=== PATIENT | female | born 1995 | race Caucasian/White ===

== ENCOUNTER 2019-08-01 17:10 | Emergency (ER) | payer MEDICAID ==
[2019-08-01] MEDS ORDERED: IPRATROPIUM/ALBUTEROL 3 ML NEB INH STA (17:19)
[2019-08-01] MEDS ORDERED: predniSONE 20 MG TABLET PO STA (17:37)
--- NOTE | 2019-08-01 17:39 | ED Physician Documentation ---
History of Present Illness - Stated complaint Stated Complaint: SOA - Chief complaint Chief Complaint: Resp - History obtained from History obtained from: Patient - History of Present Illness Timing: How many days ago (3) Pain level max: 0 Pain level now: 0 - Additonal information Additional information: 24-year-old female presents to the emergency department stating that she has had difficulty breathing for the past 3 days. She is out of her steroid inhaler. [place] No fevers. No cough. History of asthma. Has been using her inhaler without relief. Denies any possibility of . Review of Systems Ten Systems: 10 systems reviewed and negative Constitutional: denies: Fever, Chills Ears: denies: Ear pain Nose: denies: Rhinorrhea / runny nose, Congestion Throat: denies: Sore throat Cardiac: denies: Chest pain / pressure, Palpitations Respiratory: reports: Dyspnea, Wheezing. 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 HEENT: None Psych: None Musculoskeletal: None Derm: None - Past Surgical History Past Surgical History: Yes Ortho: Other - Present Medications Home Medications: Ambulatory Orders Medication Instructions Recorded Confirmed Albuterol Sulfate [Albuterol 1 puffs INH Q8HR 04/19/14 11/16/14 Sulfate Hfa] predniSONE [Deltasone] 40 mg PO DAILY 5 Days tablet 04/19/14 11/16/14 Albuterol 2.5 mg INH Q4H PRN #30 neb 08/01/19 Albuterol Sulfate [Proair Hfa 1 - 2 puffs INH Q4H PRN #1 inhaler 08/01/19 Inhaler] Fluticasone/Salmeterol [Advair 1 each IH BID #1 blst.w.dev 08/01/19 250-50 Diskus] predniSONE [Deltasone] 10 mg PO [id number] #42 tab 08/01/19 - Allergies Allergies/Adverse Reactions: Allergies Allergy/AdvReac Type Severity Reaction Status Date / Time No Known Drug Allergies Allergy Verified 08/01/19 17:14 - Social History Does the pt smoke?: No Smoking Status: Never smoker Does the pt drink ETOH?: No Does the pt have substance abuse?: No - Immunizations Immunizations are current?: Yes PD ED PE NORMAL - Vitals Vital signs reviewed: Yes - General General: Alert and oriented X 3, No acute distress, Well developed/nourished - HEENT HEENT: PERRL, Ears normal, Moist mucous membranes, Pharynx benign - Neck Neck: Supple, no meningeal sign - Cardiac Cardiac: RRR - Respiratory Respiratory: Other (Mild respiratory distress with diffuse wheezing bilaterally) - Abdomen Abdomen: Soft, Non tender, Non distended - Back Back: No CVA TTP, No spinal TTP - Derm Derm: Warm and dry - Extremities Extremities: No edema, No calf tenderness / cord - Neuro Neuro: Alert and oriented X 3 - Psych Psych: Normal mood, Normal affect Results - Vitals Vitals: Vital Signs - 24 hr 08/01/19 08/01/19 08/01/19 17:14 17:30 18:20 Temperature 36.7 C Heart Rate 100 107 H 105 H Respiratory 22 20 22 Rate Blood Pressure 146/86 H O2 Saturation 94 08/01/19 19:00 Temperature Heart Rate 89 Respiratory 17 Rate Blood Pressure 146/91 H O2 Saturation 99 Oxygen O2 Source Room air - Labs Labs: Laboratory Tests 08/01/19 08/01/19 17:30 17:30 WBC 13.6 H RBC 4.96 Hgb 15.1 Hct 45.0 MCV 90.7 MCH 30.4 MCHC 33.6 RDW 13.2 Plt Count 310 MPV 10.0 Neut # (Auto) 8.8 H Lymph # (Auto) 2.7 [place] # (Auto) 0.7 Eos # (Auto) 1.3 H Baso # (Auto) 0.1 Absolute Nucleated RBC 0.00 Band Neuts % (Manual) Not Reportable Abnorm Lymph % (Manual) Not Reportable Nucleated RBC % 0.0 Neutrophils # (Manual) Not Reportable Lymphocytes # (Manual) Not Reportable Monocytes # (Manual) Not Reportable Eosinophils # (Manual) Not Reportable Basophils # (Manual) Not Reportable Differential Comment MANUAL=AUTO DIFF Platelet Estimate NORMAL (130-450,000) Platelet Morphology NORMAL APPEARANCE RBC Morph Micro Appear NORMAL APPEARANCE Sodium 139 Potassium 3.8 Chloride 104 Carbon Dioxide 23 Anion Gap 12.0 BUN 10 Creatinine 0.8 Estimated GFR (MDRD) 89 Glucose 91 Calcium 9.7 PD MEDICAL DECISION MAKING - ED course Complexity details: reviewed results, re-evaluated patient, considered differential, d/w patient ED course: Patient with an asthma exacerbation. She is well-appearing, nontoxic. Afebrile. No hypoxia. Patient feels much better after steroids and nebulizer treatments. She would like to go home at this time. We will refill her medications for her and place her on a steroid taper. Patient counseled regarding signs and symptoms for which I believe and urgent re-evaluation would be necessary. Patient with good understanding of and agreement to plan and is comfortable going home at this time This document was made in part using voice recognition software. While efforts are made to proofread this document, sound alike and grammatical errors may occur. Departure - Departure Disposition: 01 Home, Self Care Clinical Impression: Asthma Condition: Good Instructions: ED Reactive Airway Disease Follow-Up: your,doctor in 1 week [Other] Prescriptions: Albuterol 2.5 mg INH Q4H PRN #30 neb PRN Reason: Wheezing Albuterol Sulfate [Proair Hfa Inhaler] 1 - 2 puffs INH Q4H PRN #1 inhaler PRN Reason: Shortness Of Air/Wheezing Fluticasone/Salmeterol [Advair 250-50 Diskus] 1 each IH BID #1 blst.w.dev predniSONE [Deltasone] 10 mg PO [id number] #42 tab Comments: Use the medications as prescribed. Return if you worsen. Follow-up with your doctor for further care. Discharge Date/Time: 08/01/19 19:15
[2019-08-01 17:41] LABS: BASOPHILS # (AUTO) 0.1 10^3/uL (0.0-0.1); BASOPHILS % (AUTO) 0.8 %; EOSINOPHILS # (AUTO) 1.3 10^3/uL (0.0-0.7); EOSINOPHILS % (AUTO) 9.4 %; HGB - HEMOGLOBIN 15.1 g/dL (12.0-16.0); LYMPHOCYTES # (AUTO) 2.7 10^3/uL (1.5-3.5); LYMPHOCYTES % (AUTO) 19.8 %; MEAN CORPUSCULAR HEMOGLOBIN 30.4 pg (27.0-31.0); MEAN CORPUSCULAR HGB CONC 33.6 g/dL (32.0-36.0); MEAN CORPUSCULAR VOLUME 90.7 fL (81.0-99.0); MONOCYTES # (AUTO) 0.7 10^3/uL (0.0-1.0); MONOCYTES % (AUTO) 5.1 %; NEUTROPHILS # (AUTO) 8.8 10^3/uL (1.5-6.6); NEUTROPHILS % (AUTO) 64.5 %; PLT - PLATELET COUNT 310 10^3/uL (130-450); RED BLOOD COUNT 4.96 10^6/uL (4.20-5.40); RED CELL DISTRIBUTION WIDTH 13.2 % (12.0-15.0); WHITE BLOOD COUNT 13.6 x10^3/uL (4.8-10.8)
[2019-08-01 17:52] LABS: CALCIUM 9.7 mg/dL (8.5-10.3); CREATININE 0.8 mg/dL (0.4-1.0)
[2019-08-01] MEDS ORDERED: ALBUTEROL NEB 2.5 MG/3 ML INH STA (17:55)
[2019-08-01 18:03] LABS: DIFFERENTIAL COMMENT MANUAL=AUTO DIFF; PLATELET ESTIMATE, MANUAL NORMAL (130-450,000) (NORMAL); PLATELET MORPHOLOGY NORMAL APPEARANCE (NORMAL); RBC MORPHOLOGY (MULTIPLE) NORMAL APPEARANCE (NORMAL)
[2019-08-01 19:03] VITALS: BP 146/91
== END 2019-08-01 19:15 | disposition home or self-care (01) ==
LOC: ED 17:10
DX: J45.901 Unspecified asthma with (acute) exacerbation (principal)
CPT/HCPCS: 36415; 80048; 85025; 94640; 99284; J7512

== ENCOUNTER 2019-11-08 11:27 | Emergency (ER) | payer MEDICAID ==
[2019-11-08] MEDS ORDERED: IPRATROPIUM/ALBUTEROL 3 ML NEB INH STA (11:39)
[2019-11-08] MEDS ORDERED: predniSONE 20 MG TABLET PO STA (12:39)
--- NOTE | 2019-11-08 12:41 | ED Physician Documentation ---
History of Present Illness - Stated complaint Stated Complaint: SOA - Chief complaint Chief Complaint: Resp - History obtained from History obtained from: Patient - History of Present Illness Timing: Today Pain level max: 0 Pain level now: 0 - Additonal information Additional information: 24-year-old female presents the emergency department stating that she is out of all of her inhalers. She has been having increased difficulty breathing over the past few days. No fevers. No cough. Nothing makes it better or worse. Denies any possibility of . 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 HEENT: None Psych: None Musculoskeletal: None Derm: None - Past Surgical History Past Surgical History: Yes Ortho: Other - Present Medications Home Medications: Ambulatory Orders Medication Instructions Recorded Confirmed Albuterol Sulfate [Albuterol 1 puffs INH Q8HR 04/19/14 11/16/14 Sulfate Hfa] predniSONE [Deltasone] 40 mg PO DAILY 5 Days tablet 04/19/14 11/16/14 Albuterol 2.5 mg INH Q4H PRN #30 neb 11/08/19 Albuterol Sulfate [Proair Hfa 1 - 2 puffs INH Q4H PRN #1 inhaler 11/08/19 Inhaler] Fluticasone/Salmeterol [Advair 1 each IH BID #1 blst.w.dev 11/08/19 250-50 Diskus] Ipratropium/Albuterol [Duoneb] 3 ml INH Q6H PRN #30 neb 11/08/19 predniSONE [Deltasone] 10 mg PO [id number] #42 tab 11/08/19 - Allergies Allergies/Adverse Reactions: Allergies Allergy/AdvReac Type Severity Reaction Status Date / Time No Known Drug Allergies Allergy Verified 08/01/19 17:14 - Social History Does the pt smoke?: No Smoking Status: Never smoker Does the pt drink ETOH?: No Does the pt have substance abuse?: No - Immunizations Immunizations are current?: Yes PD ED PE NORMAL - Vitals Vital signs reviewed: Yes - General General: Alert and oriented X 3, No acute distress - HEENT HEENT: Moist mucous membranes - Neck Neck: Supple, no meningeal sign - Cardiac Cardiac: RRR - Respiratory Respiratory: No respiratory distress, Other (Diffuse wheeze bilaterally) - Derm Derm: Warm and dry - Neuro Neuro: Alert and oriented X 3 Results - Vitals Vitals: Vital Signs - 24 hr 11/08/19 11/08/19 11/08/19 11:35 12:01 12:26 Temperature 37.4 C Heart Rate 101 H 110 H Respiratory 24 16 Rate Blood Pressure 159/88 H 117/105 H O2 Saturation 94 11/08/19 12:51 Temperature 37.3 C Heart Rate 95 Respiratory 22 Rate Blood Pressure 111/90 H O2 Saturation 97 Oxygen O2 Source Room air PD MEDICAL DECISION MAKING - ED course Complexity details: reviewed results, re-evaluated patient, considered differential, d/w patient, d/w family ED course: We will refill her inhalers for her for home. I will place her back on a steroid taper as well. Patient is well-appearing, nontoxic. Afebrile. No hypoxia. No current illness. Patient counseled regarding signs and symptoms for which I believe and urgent re-evaluation would be necessary. Patient with good understanding of and agreement to plan and is comfortable going home at this time This document was made in part using voice recognition software. While efforts are made to proofread this document, sound alike and grammatical errors may occur. Departure - Departure Disposition: 01 Home, Self Care Clinical Impression: Asthma Qualifiers: Asthma severity: unspecified severity Asthma persistence: unspecified Asthma complication type: with acute exacerbation Qualified Code(s): J45.901 - Unspecified asthma with (acute) exacerbation Condition: Good Instructions: ED Reactive Airway Disease Follow-Up: your,doctor in 1 week [Other] Prescriptions: Fluticasone/Salmeterol [Advair 250-50 Diskus] 1 each IH BID #1 blst.w.dev Albuterol 2.5 mg INH Q4H PRN #30 neb PRN Reason: Wheezing predniSONE [Deltasone] 10 mg PO [id number] #42 tab Ipratropium/Albuterol [Duoneb] 3 ml INH Q6H PRN #30 neb PRN Reason: Wheezing Albuterol Sulfate [Proair Hfa Inhaler] 1 - 2 puffs INH Q4H PRN #1 inhaler PRN Reason: Shortness Of Air/Wheezing Comments: Return if you worsen. Follow up with your doctor further care. Discharge Date/Time: 11/08/19 12:51
[2019-11-08 12:52] VITALS: BP 111/90
== END 2019-11-08 12:51 | disposition home or self-care (01) ==
LOC: ED 11:27
DX: J45.901 Unspecified asthma with (acute) exacerbation (principal); Z76.0 Encounter for issue of repeat prescription
CPT/HCPCS: 94640; 99283; 99284; J7512

== ENCOUNTER 2020-08-03 13:20 | Outpatient (CLI) | payer MEDICAID ==
--- NOTE | 2020-08-03 15:06 | XRAY Report ---
PROCEDURE: Spine Entire AP/LAT INDICATIONS: Neck and back pain TECHNIQUE: 2 views each of the cervical, thoracic, and lumbar spine were obtained separately, for a t otal of 6 radiographic views. COMPARISON: None FINDINGS: Cervical spine: Normal cervical spine vertebral body height and alignment. No significant disc height loss or other degenerative features. No suspicious lytic or blastic osseous lesion. Thoracic spine: Mild thoracolumbar dextroscoliosis with Harley angle of approximately 8 degrees. Otherw ise normal alignment. Vertebral body heights maintained. No degenerative changes in the thoracic spin e. Lumbar spine: There are 5 nonrib-bearing lumbar-type vertebral bodies of normal height and alignment. No listhesis. No suspicious lytic or blastic osseous lesion. Mild disc height loss at L4-L5 and L5-S 1 with degenerative endplate changes. IMPRESSION: Minimal degenerative changes in the lower lumbar spine. Mild thoracolumbar dextroscoliosis. Reviewed by: Randal Doshi MD on 08/03/2020 3:05 PM PDT Approved by: Randal Doshi MD on 08/03/2020 3:05 PM PDT Station ID: [id number]
--- NOTE | 2020-08-03 15:41 | XRAY Report ---
PROCEDURE: Hand 2 View BILAT INDICATIONS: PAIN IN JOINTS OF RIGHT HAND/ FAMILY HISTORY OF RA, PAIN IN JOINT TECHNIQUE: 2 views of each hand(s) acquired. COMPARISON: None FINDINGS: Bones: No fractures or dislocations. No suspicious bony lesions. Soft tissues: No suspicious soft tissue calcifications. IMPRESSION: No acute fracture. No osseous lesion. If symptoms and/or clinical suspicion for pathology continue, f urther assessment with repeat plain films, or advanced imaging (e.g., CT, MRI, or bone scan) is recom mended for further assessment. Reviewed by: Anmol Pearce MD on 08/03/2020 3:39 PM PDT Approved by: Anmol Pearce MD on 08/03/2020 3:39 PM PDT Station ID: [id number]
== END 2020-08-03 13:21 | disposition home or self-care (01) ==
LOC: DI 13:20
PROVIDERS: ATTEND Physician Assistant
DX: M25.541 Pain in joints of right hand (principal); M25.542 Pain in joints of left hand; Z82.61 Family history of arthritis; M47.816 Spondylosis without myelopathy or radiculopathy, lumbar region

== ENCOUNTER 2020-09-18 16:24 | Outpatient (CLI) | payer MEDICAID ==
[2020-09-18 20:13] LABS: BASOPHILS % (AUTO) 0.4 %; EOSINOPHILS # (AUTO) 0.3 10^3/uL (0.0-0.7); EOSINOPHILS % (AUTO) 3.1 %; HCT - HEMATOCRIT 45.5 % (37.0-47.0); LYMPHOCYTES # (AUTO) 2.1 10^3/uL (1.5-3.5); LYMPHOCYTES % (AUTO) 21.9 %; MEAN CORPUSCULAR HEMOGLOBIN 30.2 pg (27.0-31.0); MEAN CORPUSCULAR VOLUME 91.7 fL (81.0-99.0); MEAN PLATELET VOLUME 10.8 fL (7.9-10.8); MONOCYTES # (AUTO) 0.4 10^3/uL (0.0-1.0); MONOCYTES % (AUTO) 4.3 %; NEUTROPHILS # (AUTO) 6.8 10^3/uL (1.5-6.6); PLT - PLATELET COUNT 307 10^3/uL (130-450); RED BLOOD COUNT 4.96 10^6/uL (4.20-5.40); RED CELL DISTRIBUTION WIDTH 12.1 % (12.0-15.0); WHITE BLOOD COUNT 9.8 x10^3/uL (4.8-10.8)
[2020-09-18 20:25] LABS: ALBUMIN 4.5 g/dL (3.2-5.5); ALBUMIN/GLOBULIN RATIO 1.3 (1.0-2.2); BILIRUBIN,TOTAL 0.7 mg/dL (0.2-1.0); CALCIUM 9.3 mg/dL (8.5-10.3); CREATININE 0.8 mg/dL (0.4-1.0); POTASSIUM 4.1 mmol/L (3.5-5.0); TOTAL PROTEIN 8.1 g/dL (6.7-8.2)
[2020-09-18 20:44] LABS: THYROID STIMULATING HORMONE 0.01 uIU/mL (0.34-5.60)
[2020-09-18 21:15] LABS: FREE T4 (FREE THYROXINE) 0.95 ng/dL (0.58-1.64)
[2020-09-21 13:12] LABS: HIV AG/AB 4TH GEN NON-REACTIVE (NON-REACTIVE)
[2020-09-21 13:27] LABS: HEPATITIS C ANTIBODY NON-REACTIVE (NON-REACTIVE)
== END 2020-09-18 16:25 | disposition home or self-care (01) ==
LOC: LAB.S 16:24
PROVIDERS: ATTEND Physician Assistant
DX: Z00.00 Encounter for general adult medical examination without abnormal findings (principal)
CPT/HCPCS: 36415; 80053; 84439; 84443; 85025; 86803; 87389

== ENCOUNTER 2020-10-27 15:48 | Outpatient (CLI) | payer MEDICAID ==
[2020-10-27 20:52] LABS: THYROID STIMULATING HORMONE 3.38 uIU/mL (0.34-5.60)
[2020-10-27 20:54] LABS: FREE T3 3.62 pg/mL (2.5-3.9)
[2020-10-27 20:56] LABS: FREE T4 (FREE THYROXINE) 0.77 ng/dL (0.58-1.64)
== END 2020-10-27 15:49 | disposition home or self-care (01) ==
LOC: LAB.S 15:48
PROVIDERS: ATTEND Physician Assistant
DX: R94.6 Abnormal results of thyroid function studies (principal)
CPT/HCPCS: 36415; 84439; 84443; 84481

== ENCOUNTER 2021-11-21 13:48 | Outpatient (CLI) | payer MEDICAID ==
[2021-11-21 20:04] LABS: ESTIMATED AVERAGE GLUCOSE 94 mg/dL (70-100); HEMOGLOBIN A1c% 4.9 % (4.27-6.07)
[2021-11-21 20:14] LABS: THYROID STIMULATING HORMONE 2.15 uIU/mL (0.34-5.60)
== END 2021-11-21 13:49 | disposition home or self-care (01) ==
LOC: LAB.S 13:48
PROVIDERS: ATTEND Nurse Practitioner Family
DX: E28.2 Polycystic ovarian syndrome (principal); I10 Essential (primary) hypertension
CPT/HCPCS: 36415; 83036; 84443

== ENCOUNTER 2021-12-13 22:05 | Emergency (ER) | payer MEDICAID ==
--- NOTE | 2021-12-14 00:06 | ED Physician Documentation ---
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 Denies h/o similar symptoms. No exacerbating nor ameliorating factors. No pleuritic component. Father had ND in his early 40s Review of Systems Constitutional: reports: Reviewed and negative Cardiac: reports: Chest pain / pressure. 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 HEENT: None Psych: None Musculoskeletal: None Derm: None - Past Surgical History Past Surgical History: Yes Ortho: Other - Present Medications Home Medications: Ambulatory Orders Medication Instructions Recorded Confirmed Albuterol Sulfate [Albuterol 1 puffs INH Q8HR 04/19/14 12/13/21 Sulfate Hfa] Albuterol 2.5 mg INH Q4H PRN #30 neb 11/08/19 12/13/21 Albuterol Sulfate [Proair Hfa 1 - 2 puffs INH Q4H PRN #1 inhaler 11/08/19 12/13/21 Inhaler] Fluticasone/Salmeterol [Advair 1 each IH BID #1 blst.w.dev 11/08/19 12/13/21 250-50 Diskus] Ipratropium/Albuterol [Duoneb] 3 ml INH Q6H PRN #30 neb 11/08/19 12/13/21 Bupropion HCl [Wellbutrin Xl] 150 mg PO DAILY 12/13/21 12/13/21 Losartan Potassium 25 mg PO DAILY 12/13/21 12/13/21 Spironolactone [Aldactone] 25 mg PO DAILY 12/13/21 12/13/21 metFORMIN [Glucophage] 500 mg PO DAILY 12/13/21 12/13/21 - Allergies Allergies/Adverse Reactions: Allergies Allergy/AdvReac Type Severity Reaction Status Date / Time No Known Drug Allergies Allergy Verified 12/13/21 22:24 - Social History Does the pt smoke?: No Smoking Status: Never smoker Does the pt drink ETOH?: No Does the pt have substance abuse?: No - Immunizations Immunizations are current?: Yes PD ED PE NORMAL - Vitals Vital signs reviewed: Yes - General General: Alert and oriented X 3, No acute distress, Well developed/nourished - Cardiac Cardiac: RRR, No murmur, No gallop, No rub - Respiratory Respiratory: No respiratory distress, Clear bilaterally - Abdomen Abdomen: Soft, Non tender - Extremities Extremities: No edema Results - Vitals Vitals: Oxygen O2 Source Room air - EKG (time done) No standard instances Rate: Rate (enter#) (101) Rhythm: NSR [place]: Normal Intervals: Normal [place] QRS: Normal Ischemia: Normal ST segments - Labs Labs: Laboratory Tests 12/14/21 12/14/21 12/14/21 00:04 00:04 00:04 WBC 11.7 H RBC 4.79 Hgb 14.1 Hct 43.2 MCV 90.2 MCH 29.4 MCHC 32.6 RDW 13.4 Plt Count 260 MPV 9.3 Neut # (Auto) 9.4 H Lymph # (Auto) 1.6 [place] # (Auto) 0.4 Eos # (Auto) 0.1 Baso # (Auto) 0.1 Absolute Nucleated RBC 0.00 Nucleated RBC % 0.0 D-Dimer 206.3 Sodium 133 L Potassium 4.2 Chloride 101 Carbon Dioxide 23 Anion Gap 9.0 BUN 15 Creatinine 0.9 Estimated GFR (MDRD) 76 L Glucose 98 Calcium 9.5 - Rads (name of study) CT chest with IV contrast Radiology: Prelim report reviewed, See rad report PD MEDICAL DECISION MAKING - ED course Complexity details: reviewed results, re-evaluated patient, considered differential, d/w patient ED course: c/o chest tightness/numbness. CBC, BMP without concerning abnormality. She is tachycardic for most of her ED stay (improved to 90s bpm prior to d/c), as high as 130s ST at times. Due to the unexplained tachycardia in setting of chest discomfort, CTA chest undertaken and no evidence of acute pathology (specifically PE) on this study. Cause of symptoms remains unclear at this time. Results d/w patient, advised to follow up with primary care provider, return precautions reviewed Departure - Departure Disposition: 01 Home, Self Care Clinical Impression: Chest pain Qualifiers: Chest pain type: unspecified Qualified Code(s): R07.9 - Chest pain, unspecified Condition: Good Instructions: ED Chest Pain Atypical Unkn Cause Follow-Up: Alisson Da Silva ARNP [Primary Care Provider] - Comments: The results of tonight's tests are unremarkable; there are no concerning nor diagnostic findings. There is no evidence of a dangerous problem such as heart attack, collapsed lung, pneumonia, or pulmonary embolism (blood clot in the lung). The cause of your symptoms remains unclear at this time. Follow up with your primary care provider, next available appointment Discharge Date/Time: 12/14/21 02:57
[2021-12-14 00:10] LABS: BASOPHILS # (AUTO) 0.1 10^3/uL (0.0-0.1); BASOPHILS % (AUTO) 0.4 %; EOSINOPHILS # (AUTO) 0.1 10^3/uL (0.0-0.7); EOSINOPHILS % (AUTO) 0.6 %; HCT - HEMATOCRIT 43.2 % (37.0-47.0); HGB - HEMOGLOBIN 14.1 g/dL (12.0-16.0); LYMPHOCYTES # (AUTO) 1.6 10^3/uL (1.5-3.5); LYMPHOCYTES % (AUTO) 13.9 %; MEAN CORPUSCULAR HEMOGLOBIN 29.4 pg (27.0-31.0); MEAN CORPUSCULAR HGB CONC 32.6 g/dL (32.0-36.0); MEAN CORPUSCULAR VOLUME 90.2 fL (81.0-99.0); MEAN PLATELET VOLUME 9.3 fL (7.9-10.8); MONOCYTES # (AUTO) 0.4 10^3/uL (0.0-1.0); MONOCYTES % (AUTO) 3.8 %; NEUTROPHILS # (AUTO) 9.4 10^3/uL (1.5-6.6); PLT - PLATELET COUNT 260 10^3/uL (130-450); RED BLOOD COUNT 4.79 10^6/uL (4.20-5.40); RED CELL DISTRIBUTION WIDTH 13.4 % (12.0-15.0); WHITE BLOOD COUNT 11.7 x10^3/uL (4.8-10.8)
[2021-12-14 00:19] LABS: CALCIUM 9.5 mg/dL (8.5-10.3); CREATININE 0.9 mg/dL (0.4-1.0); POTASSIUM 4.2 mmol/L (3.5-5.0)
[2021-12-14] MEDS ORDERED: iohexoL-300 100 ML VIAL ONE (00:48)
[2021-12-14] MEDS ORDERED: iohexoL-300 100 ML VIAL IVP ONE (01:16)
--- NOTE | 2021-12-14 01:51 | CT Report ---
PROCEDURE: ANGIO CHEST W/WO INDICATIONS: chest pain, dyspnea, tachycardia CONTRAST: IV CONTRAST: Isovue 300 ml: 100 PO CONTRAST: *NO PO CONTRAST TECHNIQUE: After the administration of intravenous contrast, 2 mm axial images were acquired from the pulmonary apices to the posterior costophrenic angles during the arterial phase. In addition, 1 mm lung kernel and 5 mm soft tissue kernel reconstructions were performed. 3-dimensional coronal oblique maximum int ensity projection (MIP) reformats, 8 mm axial MIP, and 5 mm coronal and sagittal MPR reformats were t hen performed through the thorax. For radiation dose reduction, the following was used: automated exp osure control, adjustment of mA and/or kV according to patient size. COMPARISON: Chest x-ray 11/16/2014 FINDINGS: Image quality: Excellent. Pulmonary arteries: Evaluation limited by suboptimal contrast opacification. Pulmonary arteries are normal in size, and demonstrate no intraluminal filling defects to suggest central pulmonary embolism . Evaluation of subsegmental arteries is limited by suboptimal opacification. Lower Neck: No lymphadenopathy by size criteria. Thyroid: Visualized thyroid demonstrates no discrete nodules. Axillae: No lymphadenopathy by size criteria. Chest Wall: Unremarkable. Bones: Visualized osseous structures demonstrate no suspicious lesions. Lungs and Airways: No acute consolidation. No suspicious pulmonary nodules. The trachea and central airways are patent. Pleura: No pneumothorax or pleural effusions. Heart: Heart size is normal. No pericardial effusion. Thoracic Vessels: The thoracic aorta is normal in size. Mediastinum and Aby: No lymphadenopathy by size criteria. Esophagus: No wall thickening. No hiatal hernia. Abdomen: Visualized upper abdominal solid organs appear normal in the early arterial phase of enhanc ement. IMPRESSION: 1. No evidence of central pulmonary embolism. Evaluation of subsegmental pulmonary arteries is limite d by suboptimal contrast opacification. 2. No acute airspace consolidation. Reviewed by: Rich Ramos MD on 12/14/2021 1:50 AM PDT Approved by: Rich Ramos MD on 12/14/2021 1:50 AM PDT Station ID: [id number]
[2021-12-14 02:58] VITALS: BP 138/79
== END 2021-12-14 02:57 | disposition home or self-care (01) ==
LOC: ED 22:05
DX: R07.89 Other chest pain (principal); R00.0 Tachycardia, unspecified
CPT/HCPCS: 36415; 71275; 80048; 85025; 85379; 93005; 99284; Q9967

== ENCOUNTER 2021-12-21 12:46 | Emergency (ER) | payer MEDICAID ==
[2021-12-21 13:40] LABS: BASOPHILS # (AUTO) 0.1 10^3/uL (0.0-0.1); BASOPHILS % (AUTO) 0.5 %; EOSINOPHILS # (AUTO) 0.4 10^3/uL (0.0-0.7); EOSINOPHILS % (AUTO) 3.8 %; HCT - HEMATOCRIT 48.4 % (37.0-47.0); HGB - HEMOGLOBIN 15.9 g/dL (12.0-16.0); LYMPHOCYTES # (AUTO) 3.6 10^3/uL (1.5-3.5); LYMPHOCYTES % (AUTO) 38.9 %; MEAN CORPUSCULAR HEMOGLOBIN 29.1 pg (27.0-31.0); MEAN CORPUSCULAR HGB CONC 32.9 g/dL (32.0-36.0); MEAN CORPUSCULAR VOLUME 88.6 fL (81.0-99.0); MEAN PLATELET VOLUME 9.5 fL (7.9-10.8); MONOCYTES # (AUTO) 0.5 10^3/uL (0.0-1.0); MONOCYTES % (AUTO) 5.9 %; NEUTROPHILS # (AUTO) 4.7 10^3/uL (1.5-6.6); NEUTROPHILS % (AUTO) 50.7 %; PLT - PLATELET COUNT 296 10^3/uL (130-450); RED BLOOD COUNT 5.46 10^6/uL (4.20-5.40); RED CELL DISTRIBUTION WIDTH 13.4 % (12.0-15.0); WHITE BLOOD COUNT 9.2 x10^3/uL (4.8-10.8)
--- NOTE | 2021-12-21 13:47 | ED Physician Documentation ---
PD HPI ABD PAIN - Stated complaint Stated Complaint: BLOOD ON STOOL - Chief complaint Chief Complaint: Abd Pain - History obtained from History obtained from: Patient - Additional information Additional information: Last night she had a soft bowel movement with a single painless single dime sized blood clot. She had a bowel movement earlier today and there was no blood in that. She has a history of colonoscopy for epigastric pain 3 years ago with a polyp. 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 HEENT: None Psych: None Musculoskeletal: None Derm: None - Past Surgical History Past Surgical History: Yes Ortho: Other - Present Medications Home Medications: Ambulatory Orders Medication Instructions Recorded Confirmed Albuterol Sulfate [Albuterol 1 puffs INH BID 04/19/14 12/21/21 Sulfate Hfa] Fluticasone/Salmeterol [Advair 1 each IH BID #1 blst.w.dev 11/08/19 12/21/21 250-50 Diskus] Bupropion HCl [Wellbutrin Xl] 150 mg PO DAILY 12/13/21 12/21/21 Losartan Potassium 25 mg PO DAILY 12/13/21 12/21/21 Spironolactone [Aldactone] 25 mg PO DAILY 12/13/21 12/21/21 metFORMIN [Glucophage] 500 mg PO DAILY 12/13/21 12/21/21 Etonogestrel [Nexplanon] 68 mg SQ ONCE 12/21/21 12/21/21 diphenhydrAMINE [Benadryl] 25 mg PO HS 12/21/21 12/21/21 - Allergies Allergies/Adverse Reactions: Allergies Allergy/AdvReac Type Severity Reaction Status Date / Time No Known Drug Allergies Allergy Verified 12/21/21 13:17 - Social History Does the pt smoke?: No Smoking Status: Never smoker Does the pt drink ETOH?: No Does the pt have substance abuse?: No - Immunizations Immunizations are current?: Yes PD ED PE NORMAL - Vitals Vital signs reviewed: Yes - General General: Alert and oriented X 3, No acute distress - Cardiac Cardiac: RRR, No murmur - Respiratory Respiratory: No respiratory distress, Clear bilaterally - Abdomen Abdomen: Non tender - Rectal Rectal: Other (External rectal exam done with Patricia MEEHAN present and chaperoning demonstrates no external hemorrhoids or active hemorrhage.) - Neuro Neuro: Alert and oriented X 3, Normal speech Results - Vitals Vitals: Vital Signs - 24 hr 12/21/21 12/21/21 13:13 14:07 Temperature 36.9 C Heart Rate 88 95 Respiratory 16 18 Rate Blood Pressure 150/93 H 164/106 H O2 Saturation 99 98 Oxygen O2 Source Room air - Labs Labs: Laboratory Tests 12/21/21 13:33 WBC 9.2 RBC 5.46 H Hgb 15.9 Hct 48.4 H MCV 88.6 MCH 29.1 MCHC 32.9 RDW 13.4 Plt Count 296 MPV 9.5 Neut # (Auto) 4.7 Lymph # (Auto) 3.6 H [place] # (Auto) 0.5 Eos # (Auto) 0.4 Baso # (Auto) 0.1 Absolute Nucleated RBC 0.00 Nucleated RBC % 0.0 PD MEDICAL DECISION MAKING - ED course ED course: 26-year-old woman with single episode of painless hematochezia of small-volume. Close return precautions given but seems fairly benign. Departure - Departure Disposition: 01 Home, Self Care Clinical Impression: Hematochezia Condition: Good Record reviewed to determine appropriate education?: Yes Instructions: ED Hematochezia Stable Comments: Keep an eye on your stools and if this becomes a recurrent issue recommend repeat colonoscopy. Follow-up with your primary care physician next available appointment. Discharge Date/Time: 12/21/21 14:07
[2021-12-21 14:08] VITALS: BP 164/106
== END 2021-12-21 14:07 | disposition home or self-care (01) ==
LOC: ED 12:46
DX: K92.1 Melena (principal)
CPT/HCPCS: 36415; 85025; 99281; 99283

== ENCOUNTER 2022-04-25 17:53 | Emergency (ER) | payer MEDICAID ==
[2022-04-25 18:04] VITALS: BP 149/99
[2022-04-25] MEDS ORDERED: IPRATROPIUM/ALBUTEROL 3 ML NEB INH STA (18:11)
[2022-04-25] MEDS ORDERED: ALBUTEROL NEB 2.5 MG/3 ML INH STA (18:11)
[2022-04-25] MEDS ORDERED: predniSONE 20 MG TABLET PO STA (18:11)
--- NOTE | 2022-04-25 18:12 | ED Physician Documentation ---
History of Present Illness - Stated complaint Stated Complaint: SOA - Chief complaint Chief Complaint: Resp - History obtained from History obtained from: Patient - Additonal information Additional information: 26-year-old woman with history of asthma. Has been hospitalized but not many years for that. Developed increasing asthma because she ran out of her Wixela and inhaler about 5 days ago and then the next day went to a [place] [employer] party with many smokers there and that is her general trigger for asthma. Subsequently the next day she refilled her Wixela but is still having dry cough with significant shortness of breath. Denies fevers, chest pain, pedal edema, calf pain. 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 HEENT: None Psych: None Musculoskeletal: None Derm: None - Past Surgical History Past Surgical History: Yes Ortho: Other - Present Medications Home Medications: Ambulatory Orders Medication Instructions Recorded Confirmed Albuterol Sulfate [Albuterol 1 puffs INH BID 04/19/14 12/21/21 Sulfate Hfa] Fluticasone/Salmeterol [Advair 1 each IH BID #1 blst.w.dev 11/08/19 12/21/21 250-50 Diskus] Bupropion HCl [Wellbutrin Xl] 150 mg PO DAILY 12/13/21 12/21/21 Losartan Potassium 25 mg PO DAILY 12/13/21 12/21/21 Spironolactone [Aldactone] 25 mg PO DAILY 12/13/21 12/21/21 metFORMIN [Glucophage] 500 mg PO DAILY 12/13/21 12/21/21 Etonogestrel [Nexplanon] 68 mg SQ ONCE 12/21/21 12/21/21 diphenhydrAMINE [Benadryl] 25 mg PO HS 12/21/21 12/21/21 Albuterol 2.5 mg INH Q4H PRN #30 ml 04/25/22 predniSONE [Deltasone] 60 mg PO DAILY 5 Days #15 tablet 04/25/22 - Allergies Allergies/Adverse Reactions: Allergies Allergy/AdvReac Type Severity Reaction Status Date / Time No Known Drug Allergies Allergy Verified 12/21/21 13:17 - Social History Does the pt smoke?: No Smoking Status: Never smoker Does the pt drink ETOH?: No Does the pt have substance abuse?: No - Immunizations Immunizations are current?: Yes PD ED PE NORMAL - Vitals Vital signs reviewed: Yes - General General: Alert and oriented X 3, Other (Mildly breathless but speaking in full sentences) - Cardiac Cardiac: RRR, No murmur - Respiratory Respiratory: Other (Mild tachypnea with decreased air motion throughout and inspiratory and expiratory wheezes especially at the bases, relatively clear sup eriorly.) - Abdomen Abdomen: Non tender - Extremities Extremities: No edema, No calf tenderness / cord - Neuro Neuro: Alert and oriented X 3, Normal speech Results - Vitals Vitals: Vital Signs - 24 hr 04/25/22 04/25/22 18:00 18:40 Temperature 36.5 C Heart Rate 100 89 Respiratory 18 20 Rate Blood Pressure 149/99 H O2 Saturation 98 Oxygen O2 Source Room air PD Medical Decision Making - ED course ED course: 26-year-old woman presents with asthma exacerbation. Still wheezy despite DuoNebs at home. After initial evaluation she was administered another DuoNeb with 3 simultaneous albuterol's. On recheck prior to discharge her lungs were clear. RT reported peak flows that were actually above predicted. Departure - Departure Disposition: Home, Self Care Clinical Impression: Status asthmaticus Qualifiers: Asthma severity: moderate Asthma persistence: persistent Qualified Code(s): J45.42 - Moderate persistent asthma with status asthmaticus Condition: Good Record reviewed to determine appropriate education?: Yes Instructions: Asthma Dc Prescriptions: Albuterol 2.5 mg INH Q4H PRN #30 ml PRN Reason: Wheezing predniSONE [Deltasone] 60 mg PO DAILY 5 Days #15 tablet Comments: I sent your prescriptions electronically to [facility] in [place]. Call your doctor to arrange a follow-up appointment, make the next available appointment. In the interim, return anytime if worse or if new symptoms develop. Discharge Date/Time: 04/25/22 19:19
== END 2022-04-25 19:19 | disposition home or self-care (01) ==
LOC: ED 17:53
DX: J45.42 Moderate persistent asthma with status asthmaticus (principal)
CPT/HCPCS: 94150; 94640; 94664; 99283; 99284; J7512

== ENCOUNTER 2022-08-08 11:43 | Emergency (ER) | payer MEDICAID ==
--- NOTE | 2022-08-08 12:05 | ED Physician Documentation ---
History of Present Illness - Stated complaint Stated Complaint: FEMALE /BLEEDING/SOA - Chief complaint Chief Complaint: Abd Pain - Additonal information Additional information: 27-year-old female presents emergency department for concerns of vaginal bleeding in the setting of . Last menstrual period 3 months ago. Reports a history of PCOS and menstrual irregularity. She began having a menstrual cycle or vaginal bleeding last night. Checked a home test this morning and it was positive. G2, . Underwent a left ectopic in September 2021. Patient and partner using condoms and diaphragms for contraceptive purposes. Meds: Losartan, venlafaxine, metformin. 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 HEENT: None Psych: None Musculoskeletal: None Derm: None - Past Surgical History Past Surgical History: Yes Ortho: Other - Present Medications Home Medications: Ambulatory Orders Medication Instructions Recorded Confirmed Albuterol Sulfate [Albuterol 1 puffs INH BID 04/19/14 12/21/21 Sulfate Hfa] Fluticasone/Salmeterol [Advair 1 each IH BID #1 blst.w.dev 11/08/19 12/21/21 250-50 Diskus] Losartan Potassium 25 mg PO DAILY 12/13/21 12/21/21 buPROPion HCL [Wellbutrin Xl] 150 mg PO DAILY 12/13/21 12/21/21 metFORMIN [Glucophage] 500 mg PO DAILY 12/13/21 12/21/21 - Allergies Allergies/Adverse Reactions: Allergies Allergy/AdvReac Type Severity Reaction Status Date / Time No Known Drug Allergies Allergy Verified 08/08/22 11:53 - Social History Does the pt smoke?: No Smoking Status: Never smoker Does the pt drink ETOH?: No Does the pt have substance abuse?: No - Immunizations Immunizations are current?: Yes PD ED PE NORMAL - General General: Alert and oriented X 3, No acute distress - HEENT HEENT: PERRL - Neck Neck: Supple, no meningeal sign - Cardiac Cardiac: RRR, No murmur - Respiratory Respiratory: No respiratory distress, Clear bilaterally - Abdomen Abdomen: Normal bowel sounds, Soft, Non tender - Derm Derm: Warm and dry - Extremities Extremities: No deformity - Neuro Neuro: Alert and oriented X 3, protector plate attacher 2-12 intact Eye Opening: Spontaneous Motor: Obeys Commands Verbal: Oriented GCS Score: 15 Results - Vitals Vitals: Vital Signs - 24 hr 08/08/22 08/08/22 08/08/22 11:48 12:00 12:20 Temperature 37 C Heart Rate 100 95 Respiratory 16 20 18 Rate Blood Pressure 143/108 H 145/95 H O2 Saturation 100 98 08/08/22 13:01 Temperature Heart Rate 86 Respiratory 18 Rate Blood Pressure O2 Saturation 100 Oxygen O2 Source Room air - Labs Labs: Laboratory Tests 08/08/22 08/08/22 08/08/22 12:01 12:01 12:01 WBC 9.3 RBC 5.17 Hgb 15.6 Hct 47.3 H MCV 91.5 MCH 30.2 MCHC 33.0 RDW 12.2 Plt Count 338 MPV 9.5 Neut # (Auto) 5.7 Lymph # (Auto) 3.0 [place] # (Auto) 0.5 Eos # (Auto) 0.0 Baso # (Auto) 0.0 Absolute Nucleated RBC 0.00 Nucleated RBC % 0.0 Sodium 137 Potassium 4.0 Chloride 107 Carbon Dioxide 21 Anion Gap 9.0 BUN 9 Creatinine 0.8 Estimated GFR (MDRD) 87 L Glucose 97 Calcium 9.5 Total Bilirubin 0.7 AST 20 ALT 18 Alkaline Phosphatase 34 L Total Protein 8.1 Albumin 4.4 Globulin 3.7 Albumin/Globulin Ratio 1.2 Lipase 39 HCG, Quant 293.35 Urine Color Urine Clarity Urine pH Ur Specific [place] Urine Protein Urine Glucose (UA) Urine Ketones Urine Occult Blood Urine Nitrite Urine Bilirubin Urine Urobilinogen Ur Leukocyte Esterase Urine RBC Urine WBC Ur Squamous Epith Cells Urine Bacteria Ur Microscopic Review Urine Culture Comments 08/08/22 12:09 WBC RBC Hgb Hct MCV MCH MCHC RDW Plt Count MPV Neut # (Auto) Lymph # (Auto) [place] # (Auto) Eos # (Auto) Baso # (Auto) Absolute Nucleated RBC Nucleated RBC % Sodium Potassium Chloride Carbon Dioxide Anion Gap BUN Creatinine Estimated GFR (MDRD) Glucose Calcium Total Bilirubin AST ALT Alkaline Phosphatase Total Protein Albumin Globulin Albumin/Globulin Ratio Lipase HCG, Quant Urine Color RED/BLOODY Urine Clarity BLOODY Urine pH 6.5 Ur Specific [place] 1.025 Urine Protein >=300 H Urine Glucose (UA) NEGATIVE Urine Ketones >=80 H Urine Occult Blood LARGE H Urine Nitrite NEGATIVE Urine Bilirubin NEGATIVE Urine Urobilinogen 1 (NORMAL) Ur Leukocyte Esterase TRACE H Urine RBC TNTC H Urine WBC >25 H Ur Squamous Epith Cells NONE SEEN Urine Bacteria None Seen Ur Microscopic Review INDICATED Urine Culture Comments INDICATED - Rads (name of study) OB US Relevant Findings:: Other (Per food technologist no IUP was seen. No secondary findings to suggest ectopic) PD Medical Decision Making - ED course Complexity details: reviewed results, re-evaluated patient, considered differential, d/w patient ED course: 27-year-old female who has a history of PCOS and irregular menstrual cycles presents emergency department for evaluation of vaginal bleeding in the setting of a positive home test. LMP was 3 months ago. However its not unusual for her to skip cycles for many months. She did have an ectopic of the left tube in September 2021. Here in the ER she is alert well-appearing and has no distress. She has no hypotension tachycardia or fever. I did obtain a CBC, electrolytes and hCG. Per my interpretation no acute worrisome findings. Her hCG level however is only 293. Subsequently an ultrasound was completed and as interpreted by the radiologist no definitive IUP was noted. However there were no secondary findings suggest an ectopic . At this time the location of the remains unknown. I am encouraging the patient to follow closely with her PCP or women's health clinic provider. I discussed the usual emergent return precautions for heavy vaginal bleeding. The patient will likely return to this emergency department on Friday to have her hormone levels rechecked. A rising hCG may necessitate the need for repeat ultrasound imaging. Otherwise the usual and sooner emergent return precautions were discussed. Departure - Departure Disposition: Home, Self Care Clinical Impression: Positive test, Threatened miscarriage, , location unknown Condition: Stable Record reviewed to determine appropriate education?: Yes Follow-Up: Alisson Da Silva ARNP [Primary Care Provider] - Comments: Penelope Sargent you came to the emergency department because you had a positive test at home today but began having what you thought was a menstrual cycle yesterday. Today your hormone level is 293. This does indicate you are but unfortunately the ultrasound does not confirm an intrauterine . It also does not have any secondary findings to suggest ectopic . However with hormone levels typically under 1800 where not usually able to see evidence of intrauterine . This means that we are not sure where your is. It is possible that you are miscarrying the however an ectopic or out of the uterus is not ruled out. Over the next several days I recommend you pay close attention to your vaginal bleeding. If you begin to have severe vaginal bleeding where you saturate a pad every hour for 4 more hours, have any fainting episodes or racing heart then please return immediately to the ER. I would like you to follow-up with women's health clinic next week for reevaluation. I am working on Friday. If you are having worsening symptoms or would like your hormone level rechecked I would be happy to provide that service.
[2022-08-08 12:06] LABS: BASOPHILS % (AUTO) 0.1 %; HCT - HEMATOCRIT 47.3 % (37.0-47.0); HGB - HEMOGLOBIN 15.6 g/dL (12.0-16.0); LYMPHOCYTES % (AUTO) 32.4 %; MEAN CORPUSCULAR HEMOGLOBIN 30.2 pg (27.0-31.0); MEAN CORPUSCULAR VOLUME 91.5 fL (81.0-99.0); MEAN PLATELET VOLUME 9.5 fL (7.9-10.8); MONOCYTES # (AUTO) 0.5 10^3/uL (0.0-1.0); MONOCYTES % (AUTO) 5.3 %; NEUTROPHILS # (AUTO) 5.7 10^3/uL (1.5-6.6); NEUTROPHILS % (AUTO) 61.9 %; PLT - PLATELET COUNT 338 10^3/uL (130-450); RED BLOOD COUNT 5.17 10^6/uL (4.20-5.40); RED CELL DISTRIBUTION WIDTH 12.2 % (12.0-15.0); WHITE BLOOD COUNT 9.3 x10^3/uL (4.8-10.8)
[2022-08-08 12:28] LABS: ALBUMIN 4.4 g/dL (3.2-5.5); ALBUMIN/GLOBULIN RATIO 1.2 (1.0-2.2); BILIRUBIN,TOTAL 0.7 mg/dL (0.2-1.0); CALCIUM 9.5 mg/dL (8.5-10.3); CREATININE 0.8 mg/dL (0.4-1.0); TOTAL PROTEIN 8.1 g/dL (6.7-8.2)
[2022-08-08 12:37] LABS: GLUCOSE, URINE (UA) NEGATIVE (NEGATIVE); KETONES,URINE (UA) >=80 mg/dL (NEGATIVE); LEUKOCYTE ESTERASE, URINE TRACE (NEGATIVE); NITRITE,URINE NEGATIVE (NEGATIVE); OCCULT BLOOD,URINE LARGE (NEGATIVE); PH,URINE 6.5 PH (5.0-7.5); PROTEIN,URINE >=300 mg/dL (NEGATIVE); UROBILINOGEN,URINE 1 (NORMAL) E.U./dL (NORMAL)
[2022-08-08 13:01] LABS: BILIRUBIN,URINE NEGATIVE (NEGATIVE); CLARITY,URINE BLOODY (CLEAR); ICTOTEST,URINE NEGATIVE
[2022-08-08 13:02] LABS: WBC,URINE >25 /HPF (0-5)
[2022-08-08 13:03] LABS: BACTERIA,URINE None Seen /HPF (None Seen); RBC,URINE TNTC /HPF (0-5); SQUAMOUS EPITHELIAL CELL,UR NONE SEEN (<= Few)
[2022-08-08] MEDS ORDERED: TETANUS/DIPHTHERIA/PERTUSSIS 0.5 ML SYRINGE IM ONE (13:12)
--- NOTE | 2022-08-08 13:20 | Ultrasound Report ---
PROCEDURE: OB First Trimester INDICATIONS: RLQ abd pain; + ; hx left ectopic 09/2021 OUTSIDE/PRIOR DATING DATA: Last menstrual period (LMP): Unknown. TECHNIQUE: Real-time scanning was performed of the fetus and maternal pelvic organs, with image documentation. COMPARISON: None FINDINGS: No intrauterine gestational sac visualized. Cervix is closed. No adnexal mass. Maternal organs: Left ovary is absent. Right ovary is unremarkable. No adnexal mass. IMPRESSION: of unknown location, given no visualized intrauterine gestational sac or adnexal mass. Diff erential includes early gestational , ectopic or miscarriage. Trend beta hCG and s onographic follow up as necessary. Reviewed by: Polo Nunes on 08/08/2022 1:19 PM PDT Approved by: Polo Nunes on 08/08/2022 1:19 PM PDT Station ID: [id number]
[2022-08-08 13:29] VITALS: BP 132/69
== END 2022-08-08 13:42 | disposition home or self-care (01) ==
LOC: ED 11:43
DX: O20.0 Threatened abortion (principal); Z3A.00 Weeks of gestation of pregnancy not specified
CPT/HCPCS: 36415; 80053; 81001; 81003; 83690; 84702; 85025; 86900; 86901; 87086; 90471; 99283; 99284

== ENCOUNTER 2022-08-11 10:21 | Outpatient (CLI) | payer MEDICAID | END 2022-08-11 10:22 | disposition home or self-care (01) | LOC: LAB 10:21 | PROVIDERS: ATTEND Obstetrics & Gynecology | DX: Z32.01 Encounter for pregnancy test, result positive (principal) | CPT/HCPCS: 36415; 84702 ==

== ENCOUNTER 2022-08-19 12:40 | Outpatient (CLI) | payer MEDICAID ==
[2022-08-19 14:25] LABS: BASOPHILS % (AUTO) 0.1 %; HCT - HEMATOCRIT 46.3 % (37.0-47.0); HGB - HEMOGLOBIN 15.1 g/dL (12.0-16.0); LYMPHOCYTES # (AUTO) 2.7 10^3/uL (1.5-3.5); LYMPHOCYTES % (AUTO) 36.8 %; MEAN CORPUSCULAR HEMOGLOBIN 30.2 pg (27.0-31.0); MEAN CORPUSCULAR HGB CONC 32.6 g/dL (32.0-36.0); MEAN CORPUSCULAR VOLUME 92.6 fL (81.0-99.0); MEAN PLATELET VOLUME 10.1 fL (7.9-10.8); MONOCYTES # (AUTO) 0.4 10^3/uL (0.0-1.0); MONOCYTES % (AUTO) 5.3 %; NEUTROPHILS # (AUTO) 4.3 10^3/uL (1.5-6.6); NEUTROPHILS % (AUTO) 57.5 %; PLT - PLATELET COUNT 297 10^3/uL (130-450); WHITE BLOOD COUNT 7.4 x10^3/uL (4.8-10.8)
[2022-08-19 15:01] LABS: ALBUMIN 4.4 g/dL (3.2-5.5); ALBUMIN/GLOBULIN RATIO 1.2 (1.0-2.2); ALKALINE PHOSPHATASE 33 IU/L (42-121); ALT ALANINE AMINOTRANSFERASE 16 IU/L (10-60); AST ASPARTATE AMINOTRANSFERASE 15 IU/L (10-42); BILIRUBIN,TOTAL 0.4 mg/dL (0.2-1.0); BUN - BLOOD UREA NITROGEN 16 mg/dL (6-20); CALCIUM 9.8 mg/dL (8.5-10.3); CARBON DIOXIDE - CO2 28 mmol/L (21-32); CHLORIDE 106 mmol/L (101-111); CHOL/HDL RATIO 3.3 (<4.4); CHOLESTEROL 221 mg/dL; CREATININE 0.8 mg/dL (0.4-1.0); GFR - MDRD 87 (>89); GLUCOSE 82 mg/dL (70-100); HDL CHOLESTEROL 67 mg/dL; LDL CHOLESTEROL,CALCULATED 138 mg/dL; LDL/HDL RATIO 2.1 (<4.4); POTASSIUM 4.4 mmol/L (3.5-5.0); SODIUM 139 mmol/L (135-145); TOTAL PROTEIN 8.2 g/dL (6.7-8.2); TRIGLYCERIDES 81 mg/dL; VLDL CHOLESTEROL 16 mg/dL
[2022-08-19 15:04] LABS: THYROID STIMULATING HORMONE 2.13 uIU/mL (0.34-5.60)
[2022-08-19 21:48] LABS: ESTIMATED AVERAGE GLUCOSE 94 mg/dL (70-100); HEMOGLOBIN A1c% 4.9 % (4.27-6.07)
== END 2022-08-19 12:41 | disposition home or self-care (01) ==
LOC: LAB.S 12:40
PROVIDERS: ATTEND Nurse Practitioner Family
DX: Z00.00 Encounter for general adult medical examination without abnormal findings (principal); E78.5 Hyperlipidemia, unspecified; E28.2 Polycystic ovarian syndrome
CPT/HCPCS: 36415; 80053; 80061; 83036; 83721; 84443; 84702; 85025; 85027